=== PATIENT | female | born 1975 | race Asian ===

== ENCOUNTER 2016-11-08 20:04 | Emergency (ER) | payer OTHER ==
[~2016-11-08] VITALS: Ht 154.9 cm; Wt 70.3 kg
[2016-11-08 20:13] VITALS: BP 155/90
--- NOTE | 2016-11-08 20:21 | NUR ---
AMBULATED TO ER BED 7
--- NOTE | 2016-11-08 20:22 | NUR ---
PATIENT PRESENTS TO ED WITH C/O stuffy nose for a month, cant sleep; DENIES N/V/D; SKIN IS PINK/WARM/DRY; AAOX4 WITH EVEN AND STEADY GAIT; LUNGS CLEAR BL; HR EVEN AND REGULAR; PT DENIES ANY FEVER, CP, OR SOB AT THIS TIME; NO C/O PAIN A THIS TIME; VSS; PATIENT POSITIONED FOR COMFORT; HOB ELEVATED; BEDRAILS UP X2; BED DOWN. ER MD MADE AWARE OF PT STATUS.
--- NOTE | 2016-11-08 20:22 | NUR ---
Note undone in EDM - 11/08/16 at 2028 by LIZETH PATIENT PRESENTS TO ED WITH C/O stuffy nose for a month, cant sleep; DENIES N/V/D; SKIN IS PINK/WARM/DRY; AAOX4 WITH EVEN AND STEADY GAIT; LUNGS CLEAR BL; HR EVEN AND REGULAR; PT DENIES ANY FEVER, CP, OR SOB AT THIS TIME; PATIENT STATES PAIN OF 2/10 AT THIS TIME; VSS; PATIENT POSITIONED FOR COMFORT; HOB ELEVATED; BEDRAILS UP X2; BED DOWN. ER MD MADE AWARE OF PT STATUS.
--- NOTE | 2016-11-08 20:22 | NUR ---
Patient being evaluated by physician at bedside.
[2016-11-08 20:39] VITALS: BP 138/88
--- NOTE | 2016-11-08 20:39 | NUR ---
Patient discharged with v/s stable. Written and verbal after care instructions given and explained. Patient alert, oriented and verbalized understanding of instructions. Ambulatory with steady gait. All questions addressed prior to discharge. ID band removed. Patient advised to follow up with PMD. Rx of SINGULAIR, AUGMENTIN given. Patient educated on indication of medication including possible reaction and side effects. Opportunity to ask questions provided and answered.
== END 2016-11-08 20:39 | disposition home or self-care (01) ==
LOC: MED 20:04
DX: J32.9 Chronic sinusitis, unspecified (principal); R03.0 Elevated blood-pressure reading, without diagnosis of hypertension; J45.909 Unspecified asthma, uncomplicated
CPT/HCPCS: 99283

== ENCOUNTER 2017-08-06 19:23 | Emergency (ER) | payer OTHER ==
[~2017-08-06] VITALS: Ht 162.6 cm; Wt 66.7 kg
[2017-08-06 19:36] VITALS: BP 144/96
--- NOTE | 2017-08-06 20:30 | NUR ---
FLU SWAB, STREP SWAB COLLECTED
--- NOTE | 2017-08-06 21:12 | NUR ---
TO ER CHAIR Shelby
--- NOTE | 2017-08-06 21:15 | NUR ---
42Y/F PRESENTS TO ER C/O "NASAL CONGESTION" X15 DAYS, W/ RUNNY NOSE. BL BS CLEAR THROUGH OUT, RR EVEN AND UNLABORED, PT APPEARS TO BE IN NO APPARENT DISTRESS AT THIS TIME. PMH ASTHMA, NKA
--- NOTE | 2017-08-06 21:49 | NUR ---
PATIENT LEFT WITHOUT BEING SEEN BY DR. Khan. NO FURTHER CARE PROVIDED FOR PATIENT.
== END 2017-08-06 21:49 | disposition left against medical advice (07) ==
LOC: MED 19:23
DX: J11.1 Influenza due to unidentified influenza virus with other respiratory manifestations (principal); Z53.21 Procedure and treatment not carried out due to patient leaving prior to being seen by health care provider
CPT/HCPCS: 36415; 87081; 87804; 99281